=== PATIENT | male | born 1945 | race African-American/Black ===

== ENCOUNTER 2021-09-12 11:45 | Inpatient (IN) | payer MEDICARE, OTHER ==
[~2021-09-12] VITALS: Ht 177.8 cm; Wt 78.0 kg
[2021-09-12 12:41] LABS: BASOPHILS % (AUTO) 0.3 % (0.0-2.0); EOSINOPHILS % (AUTO) 1.3 % (1.0-6.0); HEMATOCRIT 32.1 % (41-53); LYMPHOCYTES # (AUTO) 0.3 K/uL (1.0-4.8); LYMPHOCYTES % (AUTO) 7.6 % (22.0-44.0); MEAN CORPUSCULAR HEMOGLOBIN 29.3 pg (26.0-34.0); MEAN CORPUSCULAR HGB CONC 34.3 G/dL (31.0-37.0); MEAN CORPUSCULAR VOLUME 86 fL (80-100); MONOCYTES # (AUTO) 0.2 K/uL (0.1-1.0); MONOCYTES % (AUTO) 4.1 % (2.0-9.0); NEUTROPHILS # (AUTO) 3.8 K/uL (1.8-7.7); PLATELET COUNT (AUTO) 178 K/uL (150-450); RED BLOOD CELL COUNT(AUTO) 3.75 MIL/uL (4.50-5.90); RED CELL DISTRIBUTION WIDTH 14.8 % (11.5-14.5)
[2021-09-12] MEDS ORDERED: GLUCAGON,HUMAN RECOMBINANT 1 MG VIAL IVP ONE (12:45)
[2021-09-12] MEDS ORDERED: SODIUM CHLORIDE 0.9% 1,000 ML IV ONE (12:45)
[2021-09-12] MEDS ORDERED: ATROPINE SULFATE 0.1 MG/ML 10 ML SYRINGE IVP ONE (12:45)
[2021-09-12] MEDS ORDERED: CALCIUM GLUCONATE 100 MG/ML 10 ML IVP ONE ×3 (12:45→16:45)
[2021-09-12] MEDS ORDERED: ONDANSETRON HCL 4 MG/2 ML VIAL IVP ONE ×2 (12:45→16:45)
[2021-09-12 12:54] LABS: NEUTROPHILS % (AUTO) 86.7 % (40.0-70.0)
[2021-09-12 12:59] LABS: INR 1.1 (0.9-1.1); PROTHROMBIN TIME 12.1 SEC (9.4-11.6)
[2021-09-12 13:02] LABS: B-TYPE NATRIURETIC PEPTIDE 68 pg/mL (0-100)
[2021-09-12 13:05] LABS: LACTIC ACID 0.8 mmol/L (0.4-2.0)
[2021-09-12 13:18] LABS: ALANINE AMINOTRANSFERASE 43 U/L (12-78); ALBUMIN 3.2 g/dL (3.4-5.0); ALKALINE PHOSPHATASE 144 U/L (46-116); ANION GAP 17 mmol/L (8-16); ASPARTATE AMINOTRANSFERASE 49 U/L (15-37); BILIRUBIN,TOTAL 0.4 mg/dL (0.1-1.0); CALCIUM, TOTAL 8.4 mg/dL (8.8-10.5); CARBON DIOXIDE 16 mmol/L (22-29); CHLORIDE 112 mmol/L (98-107); CREATINE KINASE, TOTAL ONLY 351 U/L (39-308); CREATININE 17.75 mg/dL (0.60-1.30); FREE T4 (FREE THYROXINE) 0.89 ng/dL (0.76-1.46); GLUCOSE,RANDOM 156 mg/dL (70-110); LIPASE 575 U/L (73-393); SODIUM SERUM 145 mmol/L (136-145); THYROID STIMULATING HORMONE 2.11 uIU/mL (0.36-3.74); TOTAL PROTEIN, SERUM 6.6 g/dL (6.4-8.2)
[2021-09-12 13:29] LABS: POTASSIUM 6.5 mmol/L (3.5-5.1)
[2021-09-12 13:44] LABS: APPEARANCE,URINE CLEAR (CLEAR); BILIRUBIN,URINE NEGATIVE (NEGATIVE); GLUCOSE, URINE (UA) NEGATIVE (NEGATIVE); KETONES,URINE NEGATIVE (NEGATIVE); LEUKOCYTE ESTERASE ,URINE NEGATIVE (NEGATIVE); NITRATE,URINE NEGATIVE (NEGATIVE); OCCULT BLOOD,URINE TRACE (NEGATIVE); PH,URINE 5.5 (5.0-8.0); PROTEIN,URINE NEGATIVE (NEGATIVE); UROBILINOGEN,URINE 0.2 mg/dL (<=1.0)
[2021-09-12 13:44] LABS: UREA NITROGEN, BLOOD 160 mg/dL (7-18)
[2021-09-12 13:45] LABS: GLOMERULAR FILTR. RATE CALC 3 mL/min (>60)
[2021-09-12] MEDS ORDERED: DEXTROSE 50%-WATER 25 GM/50 ML SYRINGE IVP ONE (13:45)
[2021-09-12] MEDS ORDERED: SODIUM BICARBONATE [ADULT] 8.4% 50 MEQ/50 ML SYRINGE IVP ONE (13:45)
[2021-09-12] MEDS ORDERED: ONDANSETRON HCL 4 MG/2 ML VIAL IVP PRN (13:45)
[2021-09-12] MEDS ORDERED: INSULIN REGULAR, HUMAN 100 UNITS/ML IVP ONE (13:45)
[2021-09-12] MEDS: SODIUM CHLORIDE 0.9% 1,000 ML IV SCH (13:45)
[2021-09-12] MEDS ORDERED: INSULIN LISPRO 100 UNITS/ML SQ PRN (13:45)
[2021-09-12 13:46] LABS: BACTERIA,URINE None Seen /HPF (None Seen); RBC,URINE 0-2 /HPF (0-2); WBC,URINE 0-2 /HPF (0-5)
[2021-09-12 13:49] LABS: AMPHET/METH SCREEN,URINE NEGATIVE (NEGATIVE); BARBITURATE SCREEN, URINE NEGATIVE (NEGATIVE); BENZODIAZEPINES SCREEN,URINE NEGATIVE (NEGATIVE); CANNABINOID SCREEN,URINE NEGATIVE (NEGATIVE); COCAINE SCREEN,URINE NEGATIVE (NEGATIVE); METHADONE SCREEN, URINE NEGATIVE (NEGATIVE); OPIATE SCREEN,URINE NEGATIVE (NEGATIVE); PHENCYCLIDINE SCREEN,URINE NEGATIVE (NEGATIVE)
[2021-09-12] MEDS ORDERED: MIDAZOLAM HCL 2 MG/2 ML VIAL IVP ONE ×3 (14:00→16:15)
[2021-09-12 14:15] LABS: GLUCOMETER DEV NAME(LOC) ERT.5; GLUCOSE,POINT OF CARE 173 MG/DL (70-110)
[2021-09-12 14:44] LABS: COVID AG,FIA SOURCE NASOPHARYNGEAL
[2021-09-12] MEDS ORDERED: MIDAZOLAM HCL 5 MG/ML VIAL ONE (14:51)
[2021-09-12] MEDS ORDERED: HEPARIN SODIUM,PORCINE 5,000 UNITS/ML VIAL ONE (15:22)
[2021-09-12] MEDS: DOCUSATE SODIUM 100 MG CAPSULE PO SCH (21:00)
[2021-09-13] MEDS: LORazepam 2 MG/ML VIAL IVP PRN ×5 (01:43→13:00)
[2021-09-13] MEDS: SODIUM CHLORIDE 0.9% 1,000 ML IV SCH (04:29)
[2021-09-13] MEDS ORDERED: LORazepam 2 MG/ML VIAL IVP ONE (06:45)
[2021-09-13 06:56] LABS: BASOPHILS % (AUTO) 0.3 % (0.0-2.0); EOSINOPHILS % (AUTO) 2.4 % (1.0-6.0); HEMOGLOBIN 13.1 g/dL (13.5-17.5); LYMPHOCYTES # (AUTO) 0.4 K/uL (1.0-4.8); MEAN CORPUSCULAR HEMOGLOBIN 29.1 pg (26.0-34.0); MEAN CORPUSCULAR HGB CONC 34.6 G/dL (31.0-37.0); MEAN CORPUSCULAR VOLUME 84 fL (80-100); MONOCYTES # (AUTO) 0.8 K/uL (0.1-1.0); MONOCYTES % (AUTO) 9.2 % (2.0-9.0); NEUTROPHILS # (AUTO) 7.3 K/uL (1.8-7.7); NEUTROPHILS % (AUTO) 83.1 % (40.0-70.0); PLATELET COUNT (AUTO) 242 K/uL (150-450); RED BLOOD CELL COUNT(AUTO) 4.52 MIL/uL (4.50-5.90); RED CELL DISTRIBUTION WIDTH 14.4 % (11.5-14.5)
[2021-09-13 07:14] LABS: % IRON SATURATION 21.9 % (30-44)
[2021-09-13 07:38] LABS: C-REACTIVE PROTEIN QUANT 6.23 mg/dL (0.00-0.30); CALCIUM, TOTAL 9.3 mg/dL (8.8-10.5); CREATININE 4.11 mg/dL (0.60-1.30); POTASSIUM 4.8 mmol/L (3.5-5.1)
[2021-09-13] MEDS: FAMOTIDINE 20 MG TABLET PO SCH (08:03)
[2021-09-13] MEDS: DOCUSATE SODIUM 100 MG CAPSULE PO SCH ×2 (08:03→21:00)
[2021-09-13] MEDS: HEPARIN SODIUM,PORCINE 5,000 UNITS/ML VIAL SQ SCH ×2 (09:27→22:52)
[2021-09-13] MEDS ORDERED: DEXTROSE 5%-0.45% SODIUM CHL 1,000 ML IV ONE (10:45)
[2021-09-13] MEDS ORDERED: HEPARIN SODIUM,PORCINE 1,000 UNITS/ML VIAL IVP ONE (16:34)
[2021-09-13] MEDS: PIPERACILLIN SODIUM/TAZOBACTAM 2.25 GM in DEXTROSE 5%-WATER 50 ML IV SCH (17:14)
[2021-09-13] MEDS ORDERED: RAPID SEQUENCE KIT [RSI] 1 EACH KIT MISC ONE (17:49)
[2021-09-13] MEDS ORDERED: NOREPINEPHRINE 4 MG/D5%-WATER 250 ML IV ONE (17:49)
[2021-09-13 17:59] LABS: ABG BASE EXCESS -0.3 mmol/L (-2.0-3.0); ABG CARBOXYHEMOGLOBIN 0.2 % (0.0-1.5); ABG HCO3 24.1 mmol/L (22.0-26.0); ABG METHEMOGLOBIN 0.1 % (0.0-1.5); ABG OXYGEN CONTENT 14.5 mL/dL (15.0-23.0); ABG OXYHEMOGLOBIN 78.9 % (94.0-100.0); ABG PCO2 36 mmHg (35-45); ABG PH 7.437 (7.35-7.450); ABG TOTAL HEMOGLOBIN 13.1 G/dL (12.0-18.0); SOURCE, BLOOD GAS ARTERIAL; TEMPERATURE, FAHRENHEIT, BG 98.6 FAHREN (96.0-98.6)
[2021-09-13 18:00] LABS: ABG OXYGEN SATURATION 79.1 % (95.0-98.0); O2 DEVICE,BLOOD GAS NON REBREATHER (ROOM AIR); PO2, ARTERIAL BG 41.8 mmHg (75.0-83.0); SITE, BLOOD GAS LFT RADIAL
[2021-09-13] MEDS ORDERED: DEXTROSE 50%-WATER 25 GM/50 ML SYRINGE IVP ONE (18:00)
[2021-09-13] MEDS ORDERED: PROPOFOL 1000 MG/ISO-OSM 100 ML ONE (18:06)
[2021-09-13] MEDS ORDERED: PHENYLEPHRINE 200 MG/D5%-WATER 250 ML IV PRN (18:30)
[2021-09-13] MEDS ORDERED: PHENYLEPHRINE HCL IN 0.9% NACL 400 MCG/10 ML SYRINGE IVP ONE (18:30)
[2021-09-13 18:39] LABS: HEMATOCRIT 36.6 % (41-53); HEMOGLOBIN 12.5 g/dL (13.5-17.5); MEAN CORPUSCULAR HEMOGLOBIN 29.3 pg (26.0-34.0); MEAN CORPUSCULAR VOLUME 86 fL (80-100); PLATELET COUNT (AUTO) 208 K/uL (150-450); RED BLOOD CELL COUNT(AUTO) 4.25 MIL/uL (4.50-5.90); RED CELL DISTRIBUTION WIDTH 14.8 % (11.5-14.5)
[2021-09-13] MEDS: NOREPINEPHRINE 4 MG/D5%-WATER 250 ML IV PRN (18:40)
[2021-09-13 18:41] LABS: CALCIUM, TOTAL 8.8 mg/dL (8.8-10.5); CREATININE 3.19 mg/dL (0.60-1.30); POTASSIUM 3.8 mmol/L (3.5-5.1)
[2021-09-13] MEDS ORDERED: DEXMEDETOMIDINE HCL 400 MCG in SODIUM CHLORIDE 0.9% 96 ML IV PRN (18:45)
[2021-09-13 18:48] LABS: BILIRUBIN,TOTAL 0.5 mg/dL (0.1-1.0); TOTAL PROTEIN, SERUM 6.4 g/dL (6.4-8.2)
[2021-09-13 18:52] LABS: ABG BASE EXCESS -1.1 mmol/L (-2.0-3.0); ABG CARBOXYHEMOGLOBIN 0.8 % (0.0-1.5); ABG HCO3 22.6 mmol/L (22.0-26.0); ABG METHEMOGLOBIN 0.3 % (0.0-1.5); ABG OXYGEN CONTENT 15.5 mL/dL (15.0-23.0); ABG OXYHEMOGLOBIN 83.1 % (94.0-100.0); ABG PCO2 55 mmHg (35-45); ABG PH 7.286 (7.35-7.450); ABG TOTAL HEMOGLOBIN 13.3 G/dL (12.0-18.0); SOURCE, BLOOD GAS ARTERIAL; TEMPERATURE, FAHRENHEIT, BG 98.8 FAHREN (96.0-98.6)
[2021-09-13 18:54] LABS: O2 DEVICE,BLOOD GAS VENTILATOR (ROOM AIR); PEEP,BG 5 cm H2O; SITE, BLOOD GAS LFT RADIAL; SPONTANEOUS VT, BG 404 ml; VT, ABG 400 ml
[2021-09-13] MEDS: FentaNYL CIT 1000MCG/0.9% NACL 100 ML IV PRN (19:23)
[2021-09-13 19:27] LABS: BAND NEUTROPHILS % (MANUAL) 4 % (0-5); LYMPHOCYTES % (MANUAL) 21 % (22-44); MONOCYTES % (MANUAL) 4 % (2-9); SEGMENTED NEUTROPHILS % 71 % (40-70)
[2021-09-13] MEDS: VASOPRESSIN 40 UNITS in DEXTROSE 5%-WATER 98 ML IV PRN (19:27)
[2021-09-13] MEDS: PROPOFOL 1000 MG/ISO-OSM 100 ML IV PRN (19:54)
[2021-09-13 20:35] LABS: ABG BASE EXCESS -2.4 mmol/L (-2.0-3.0); ABG CARBOXYHEMOGLOBIN 0.8 % (0.0-1.5); ABG HCO3 22.8 mmol/L (22.0-26.0); ABG METHEMOGLOBIN 0.3 % (0.0-1.5); ABG OXYGEN SATURATION 87.3 % (95.0-98.0); ABG OXYHEMOGLOBIN 86.3 % (94.0-100.0); ABG PCO2 36 mmHg (35-45); ABG PH 7.407 (7.35-7.450); PO2, ARTERIAL BG 56.7 mmHg (75.0-83.0); SOURCE, BLOOD GAS ARTERIAL; TEMPERATURE, FAHRENHEIT, BG 100.2 FAHREN (96.0-98.6)
[2021-09-13 20:36] LABS: O2 DEVICE,BLOOD GAS VENTILATOR (ROOM AIR); PEEP,BG 10 cm H2O; SITE, BLOOD GAS LFT RADIAL; SPONTANEOUS VT, BG 464 ml; VT, ABG 450 ml
[2021-09-13] MEDS ORDERED: RINGERS LACTATED IV ONE (21:15)
[2021-09-13] MEDS ORDERED: RINGERS SOLUTION,LACTATED 1,000 ML IV ONE (21:30)
[2021-09-13] MEDS: DOPamine 400MG/D5W[STANDARD] 250 ML IV PRN (21:33)
[2021-09-14] MEDS: PIPERACILLIN SODIUM/TAZOBACTAM 2.25 GM in DEXTROSE 5%-WATER 50 ML IV SCH ×4 (01:18→20:15)
[2021-09-14] MEDS: FentaNYL CIT 1000MCG/0.9% NACL 100 ML IV PRN ×3 (06:43→16:59)
[2021-09-14] MEDS: PROPOFOL 1000 MG/ISO-OSM 100 ML IV PRN (06:57)
[2021-09-14] MEDS: MIDAZOLAM HCL 100 MG in SODIUM CHLORIDE 0.9% 180 ML IV PRN (06:58)
[2021-09-14 07:06] LABS: HEPATITIS C AB (EIA) <0.1 s/co ratio (0.0-0.9)
[2021-09-14 07:49] LABS: ABG BASE EXCESS -5.5 mmol/L (-2.0-3.0); ABG CARBOXYHEMOGLOBIN 0.3 % (0.0-1.5); ABG HCO3 18.4 mmol/L (22.0-26.0); ABG METHEMOGLOBIN 0.3 % (0.0-1.5); ABG OXYGEN CONTENT 17.2 mL/dL (15.0-23.0); ABG OXYGEN SATURATION 87.3 % (95.0-98.0); ABG OXYHEMOGLOBIN 86.8 % (94.0-100.0); ABG TOTAL HEMOGLOBIN 14.1 G/dL (12.0-18.0); PO2, ARTERIAL BG 59.6 mmHg (75.0-83.0); SOURCE, BLOOD GAS ARTERIAL
[2021-09-14 07:51] LABS: ABG A-A DIFF O2 581.5 mmHg (10-20.0); ABG PCO2 76 mmHg (35-45); ABG PH 7.111 (7.35-7.450); O2 DEVICE,BLOOD GAS VENTILATOR (ROOM AIR); SITE, BLOOD GAS LFT RADIAL; TEMPERATURE, FAHRENHEIT, BG 95.3 FAHREN (96.0-98.6); VT, ABG 450 ml
[2021-09-14 07:52] LABS: PEEP,BG 14 cm H2O; SPONTANEOUS VT, BG 350 ml
[2021-09-14] MEDS: FAMOTIDINE 20 MG TABLET PO SCH (08:59)
[2021-09-14] MEDS: DOCUSATE SODIUM 100 MG CAPSULE PO SCH (08:59)
[2021-09-14] MEDS: NOREPINEPHRINE 4 MG/D5%-WATER 250 ML IV PRN ×3 (09:00→23:30)
[2021-09-14] MEDS: DOPamine 400MG/D5W[STANDARD] 250 ML IV PRN ×2 (09:00→16:41)
[2021-09-14] MEDS: HEPARIN SODIUM,PORCINE 5,000 UNITS/ML VIAL SQ SCH ×2 (09:00→22:55)
[2021-09-14 09:36] LABS: HEMATOCRIT 39.9 % (41-53); HEMOGLOBIN 13.2 g/dL (13.5-17.5); MEAN CORPUSCULAR HGB CONC 33.1 G/dL (31.0-37.0); MEAN CORPUSCULAR VOLUME 88 fL (80-100); PLATELET COUNT (AUTO) 194 K/uL (150-450); RED BLOOD CELL COUNT(AUTO) 4.55 MIL/uL (4.50-5.90); RED CELL DISTRIBUTION WIDTH 14.9 % (11.5-14.5)
[2021-09-14 09:43] LABS: ANION GAP 11 mmol/L (8-16); CALCIUM, TOTAL 8.3 mg/dL (8.8-10.5); CARBON DIOXIDE 25 mmol/L (22-29); CHLORIDE 101 mmol/L (98-107); CREATININE 4.02 mg/dL (0.60-1.30); GLOMERULAR FILTR. RATE CALC 18 mL/min (>60); GLUCOSE,RANDOM 222 mg/dL (70-110); SODIUM SERUM 137 mmol/L (136-145); UREA NITROGEN, BLOOD 35 mg/dL (7-18)
[2021-09-14 09:46] LABS: INR 1.2 (0.9-1.1); PROTHROMBIN TIME 12.4 SEC (9.4-11.6)
[2021-09-14 09:49] LABS: ALANINE AMINOTRANSFERASE 64 U/L (12-78); ALKALINE PHOSPHATASE 153 U/L (46-116); ASPARTATE AMINOTRANSFERASE 34 U/L (15-37); BILIRUBIN,TOTAL 0.7 mg/dL (0.1-1.0); TOTAL PROTEIN, SERUM 7.1 g/dL (6.4-8.2)
[2021-09-14 10:07] LABS: ABG A-A DIFF O2 626.2 mmHg (10-20.0); ABG BASE EXCESS -6.1 mmol/L (-2.0-3.0); ABG CARBOXYHEMOGLOBIN 0.4 % (0.0-1.5); ABG HCO3 18.5 mmol/L (22.0-26.0); ABG METHEMOGLOBIN 0.1 % (0.0-1.5); ABG OXYGEN CONTENT 16.9 mL/dL (15.0-23.0); ABG OXYGEN SATURATION 87.1 % (95.0-98.0); ABG OXYHEMOGLOBIN 86.7 % (94.0-100.0); ABG PCO2 53 mmHg (35-45); ABG PH 7.218 (7.35-7.450); ABG TOTAL HEMOGLOBIN 13.9 G/dL (12.0-18.0); O2 DEVICE,BLOOD GAS VENTILATOR (ROOM AIR); PEEP,BG 14 cm H2O; PO2, ARTERIAL BG 44.2 mmHg (75.0-83.0); SITE, BLOOD GAS LFT RADIAL; SOURCE, BLOOD GAS ARTERIAL; SPONTANEOUS VT, BG 500 ml; TEMPERATURE, FAHRENHEIT, BG 90.2 FAHREN (96.0-98.6); VT, ABG 450 ml
[2021-09-14 10:23] LABS: BAND NEUTROPHILS % (MANUAL) 9 % (0-5); LYMPHOCYTES % (MANUAL) 18 % (22-44); MONOCYTES % (MANUAL) 2 % (2-9); SEGMENTED NEUTROPHILS % 71 % (40-70)
[2021-09-14] MEDS ORDERED: SODIUM BICARBONATE [ADULT] 8.4% 50 MEQ/50 ML SYRINGE IVP ONE (10:30)
[2021-09-14] MEDS ORDERED: HEPARIN SODIUM,PORCINE 1,000 UNITS/ML VIAL IVP ONE (14:54)
[2021-09-14] MEDS ORDERED: HEPARIN SODIUM 1000 UNITS/NS 500 ML ONE (15:22)
[2021-09-14 16:00] LABS: ABG CARBOXYHEMOGLOBIN 0.3 % (0.0-1.5); ABG HCO3 23.7 mmol/L (22.0-26.0); ABG OXYGEN CONTENT 16.1 mL/dL (15.0-23.0); ABG OXYGEN SATURATION 89.7 % (95.0-98.0); ABG OXYHEMOGLOBIN 89.4 % (94.0-100.0); ABG PCO2 54 mmHg (35-45); ABG PH 7.307 (7.35-7.450); ABG TOTAL HEMOGLOBIN 12.8 G/dL (12.0-18.0); PO2, ARTERIAL BG 59.9 mmHg (75.0-83.0); SITE, BLOOD GAS ARTERIAL LINE; SOURCE, BLOOD GAS ARTERIAL; TEMPERATURE, FAHRENHEIT, BG 98.6 FAHREN (96.0-98.6)
[2021-09-14 16:01] LABS: ABG A-A DIFF O2 599.2 mmHg (10-20.0); O2 DEVICE,BLOOD GAS VENTILATOR (ROOM AIR); PEEP,BG 12 cm H2O; VT, ABG 450 ml
[2021-09-14 16:14] LABS: CALCIUM, TOTAL 7.6 mg/dL (8.8-10.5); CREATININE 3.61 mg/dL (0.60-1.30); POTASSIUM 4.7 mmol/L (3.5-5.1)
[2021-09-14 16:19] LABS: ALBUMIN 2.6 g/dL (3.4-5.0); BILIRUBIN,TOTAL 0.8 mg/dL (0.1-1.0); MAGNESIUM 1.6 mg/dL (1.80-2.40); PHOSPHORUS 7.1 mg/dL (2.5-4.9); TOTAL PROTEIN, SERUM 6.1 g/dL (6.4-8.2)
[2021-09-14 20:26] LABS: HEMOGLOBIN 11.7 g/dL (13.5-17.5); MEAN CORPUSCULAR HEMOGLOBIN 29.9 pg (26.0-34.0); MEAN CORPUSCULAR HGB CONC 34.5 G/dL (31.0-37.0); MEAN CORPUSCULAR VOLUME 87 fL (80-100); PLATELET COUNT (AUTO) 160 K/uL (150-450); RED BLOOD CELL COUNT(AUTO) 3.92 MIL/uL (4.50-5.90); RED CELL DISTRIBUTION WIDTH 14.9 % (11.5-14.5)
[2021-09-14 20:43] LABS: MAGNESIUM 1.5 mg/dL (1.80-2.40); PHOSPHORUS 7.3 mg/dL (2.5-4.9)
[2021-09-14] MEDS ORDERED: SODIUM CHLORIDE 0.9% 1,000 ML ONE ×2 (21:21→21:22)
[2021-09-14] MEDS ORDERED: POTASSIUM CHLORIDE 15 MEQ in NXSTAGE RFP-402 K0/CA3 5,000 ML IRRIG PRN (21:30)
[2021-09-14 22:20] LABS: CALCIUM, TOTAL 7.6 mg/dL (8.8-10.5); CREATININE 4.07 mg/dL (0.60-1.30)
[2021-09-14 22:42] LABS: BAND NEUTROPHILS % (MANUAL) 11 % (0-5); LYMPHOCYTES % (MANUAL) 10 % (22-44); MONOCYTES % (MANUAL) 11 % (2-9); SEGMENTED NEUTROPHILS % 68 % (40-70)
[2021-09-15] VITALS: BP 125/40
[2021-09-15] MEDS: FentaNYL CIT 1000MCG/0.9% NACL 100 ML IV PRN ×3 (00:57→20:30)
[2021-09-15 02:01] LABS: HEMATOCRIT 31.9 % (41-53); HEMOGLOBIN 11.1 g/dL (13.5-17.5); MEAN CORPUSCULAR HEMOGLOBIN 29.5 pg (26.0-34.0); MEAN CORPUSCULAR HGB CONC 34.7 G/dL (31.0-37.0); MEAN CORPUSCULAR VOLUME 85 fL (80-100); PLATELET COUNT (AUTO) 133 K/uL (150-450); RED BLOOD CELL COUNT(AUTO) 3.75 MIL/uL (4.50-5.90); RED CELL DISTRIBUTION WIDTH 14.4 % (11.5-14.5)
[2021-09-15 02:13] LABS: CALCIUM, TOTAL 7.6 mg/dL (8.8-10.5); CREATININE 3.74 mg/dL (0.60-1.30); MAGNESIUM 1.6 mg/dL (1.80-2.40); PHOSPHORUS 6.4 mg/dL (2.5-4.9); POTASSIUM 4.9 mmol/L (3.5-5.1)
[2021-09-15 02:23] LABS: CORRECTED WHITE BLOOD COUNT 7.7 K/uL (4.5-11.0)
[2021-09-15 02:30] LABS: SEGMENTED NEUTROPHILS % 60 % (40-70)
[2021-09-15 02:31] LABS: BAND NEUTROPHILS % (MANUAL) 20 % (0-5); LYMPHOCYTES % (MANUAL) 9 % (22-44); MONOCYTES % (MANUAL) 11 % (2-9)
[2021-09-15] MEDS: PIPERACILLIN SODIUM/TAZOBACTAM 2.25 GM in DEXTROSE 5%-WATER 50 ML IV SCH (02:34)
[2021-09-15] MEDS ORDERED: SODIUM CHLORIDE 0.9% 250 ML IV ONE (02:35)
[2021-09-15 04:00] VITALS: BP 115/43
[2021-09-15] MEDS ORDERED: MAGNESIUM SULFATE 2 GM/WATER 50 ML IV ONE (05:30)
[2021-09-15] MEDS: NOREPINEPHRINE 4 MG/D5%-WATER 250 ML IV PRN ×3 (06:02→21:32)
[2021-09-15 06:10] LABS: HEMATOCRIT 31.6 % (41-53); HEMOGLOBIN 10.9 g/dL (13.5-17.5); MEAN CORPUSCULAR HEMOGLOBIN 29.6 pg (26.0-34.0); MEAN CORPUSCULAR HGB CONC 34.5 G/dL (31.0-37.0); MEAN CORPUSCULAR VOLUME 86 fL (80-100); PLATELET COUNT (AUTO) 132 K/uL (150-450); RED BLOOD CELL COUNT(AUTO) 3.69 MIL/uL (4.50-5.90); RED CELL DISTRIBUTION WIDTH 14.6 % (11.5-14.5)
[2021-09-15 06:34] LABS: CALCIUM, TOTAL 7.4 mg/dL (8.8-10.5); CREATININE 3.57 mg/dL (0.60-1.30); MAGNESIUM 1.5 mg/dL (1.80-2.40); PHOSPHORUS 6.1 mg/dL (2.5-4.9); POTASSIUM 4.7 mmol/L (3.5-5.1)
[2021-09-15] MEDS ORDERED: HEPARIN SODIUM,PORCINE 100 UNITS/ML 5 ML VIAL IVP ONE ×4 (07:00→07:30)
[2021-09-15 07:07] LABS: BAND NEUTROPHILS % (MANUAL) 33 % (0-5); LYMPHOCYTES % (MANUAL) 8 % (22-44); MONOCYTES % (MANUAL) 2 % (2-9); SEGMENTED NEUTROPHILS % 57 % (40-70)
[2021-09-15] MEDS ORDERED: HEPARIN SODIUM,PORCINE 1,000 UNITS/ML VIAL ONE (07:22)
[2021-09-15] MEDS: HEPARIN SODIUM,PORCINE 1,000 UNITS/ML VIAL IVP PRN ×3 (07:30→13:19)
[2021-09-15] MEDS ORDERED: HEPARIN SODIUM,PORCINE 1,000 UNITS/ML VIAL IVP PRN (07:30)
[2021-09-15 08:00] VITALS: BP 109/42
[2021-09-15] MEDS: MIDAZOLAM HCL 100 MG in SODIUM CHLORIDE 0.9% 180 ML IV PRN (08:00)
[2021-09-15] MEDS: DOCUSATE SODIUM 100 MG CAPSULE PO SCH ×2 (09:00→21:00)
[2021-09-15] MEDS: PIPERACILLIN/TAZO 3.375 GM/D5W 50 ML IV SCH ×3 (09:17→21:14)
[2021-09-15] MEDS: HEPARIN SODIUM,PORCINE 5,000 UNITS/ML VIAL SQ SCH ×2 (09:35→21:14)
[2021-09-15] MEDS ORDERED: FAMOTIDINE 20 MG TABLET ONE (09:37)
[2021-09-15 11:00] LABS: HEMOGLOBIN 10.6 g/dL (13.5-17.5); MEAN CORPUSCULAR HEMOGLOBIN 29.4 pg (26.0-34.0); MEAN CORPUSCULAR VOLUME 86 fL (80-100); PLATELET COUNT (AUTO) 138 K/uL (150-450); RED BLOOD CELL COUNT(AUTO) 3.59 MIL/uL (4.50-5.90); RED CELL DISTRIBUTION WIDTH 14.4 % (11.5-14.5)
[2021-09-15 11:27] LABS: CALCIUM, TOTAL 7.5 mg/dL (8.8-10.5); CREATININE 4.08 mg/dL (0.60-1.30); MAGNESIUM 2.3 mg/dL (1.80-2.40); PHOSPHORUS 6.6 mg/dL (2.5-4.9); POTASSIUM 4.9 mmol/L (3.5-5.1)
[2021-09-15 11:36] LABS: BAND NEUTROPHILS % (MANUAL) 24 % (0-5); CORRECTED WHITE BLOOD COUNT 11.5 K/uL (4.5-11.0); EOSINOPHILS % (MANUAL) 3 % (1-6); LYMPHOCYTES % (MANUAL) 9 % (22-44); MONOCYTES % (MANUAL) 6 % (2-9); REACTIVE LYMPHOCYTES 1 % (0-0); SEGMENTED NEUTROPHILS % 57 % (40-70)
[2021-09-15] MEDS: DOPamine 400MG/D5W[STANDARD] 250 ML IV PRN (11:48)
[2021-09-15 12:00] VITALS: BP 117/46
[2021-09-15 15:31] LABS: HEMATOCRIT 28.6 % (41-53); HEMOGLOBIN 9.8 g/dL (13.5-17.5); MEAN CORPUSCULAR HEMOGLOBIN 29.6 pg (26.0-34.0); MEAN CORPUSCULAR HGB CONC 34.1 G/dL (31.0-37.0); MEAN CORPUSCULAR VOLUME 87 fL (80-100); PLATELET COUNT (AUTO) 138 K/uL (150-450); RED CELL DISTRIBUTION WIDTH 14.6 % (11.5-14.5)
[2021-09-15 15:42] LABS: CALCIUM, TOTAL 7.5 mg/dL (8.8-10.5); CREATININE 3.77 mg/dL (0.60-1.30); MAGNESIUM 2.3 mg/dL (1.80-2.40); PHOSPHORUS 6.3 mg/dL (2.5-4.9); POTASSIUM 4.8 mmol/L (3.5-5.1)
[2021-09-15 16:00] VITALS: BP 127/48
[2021-09-15 16:00] LABS: BAND NEUTROPHILS % (MANUAL) 19 % (0-5); LYMPHOCYTES % (MANUAL) 5 % (22-44); METAMYELOCYTES % 1 % (0-0); MONOCYTES % (MANUAL) 4 % (2-9); SEGMENTED NEUTROPHILS % 71 % (40-70)
[2021-09-15] MEDS ORDERED: SODIUM CHLORIDE 0.9% 1,000 ML ONE ×2 (16:49→22:21)
[2021-09-15 19:24] LABS: HEMATOCRIT 27.1 % (41-53); HEMOGLOBIN 9.6 g/dL (13.5-17.5); MEAN CORPUSCULAR HGB CONC 35.3 G/dL (31.0-37.0); MEAN CORPUSCULAR VOLUME 85 fL (80-100); PLATELET COUNT (AUTO) 137 K/uL (150-450); RED CELL DISTRIBUTION WIDTH 14.6 % (11.5-14.5)
[2021-09-15 19:36] LABS: CALCIUM, TOTAL 7.4 mg/dL (8.8-10.5); CREATININE 3.61 mg/dL (0.60-1.30); PHOSPHORUS 5.9 mg/dL (2.5-4.9); POTASSIUM 4.6 mmol/L (3.5-5.1)
[2021-09-15 19:44] LABS: BAND NEUTROPHILS % (MANUAL) 17 % (0-5); CORRECTED WHITE BLOOD COUNT 9.2 K/uL (4.5-11.0); LYMPHOCYTES % (MANUAL) 12 % (22-44); MONOCYTES % (MANUAL) 2 % (2-9); REACTIVE LYMPHOCYTES 2 % (0-0); SEGMENTED NEUTROPHILS % 67 % (40-70)
[2021-09-15] MEDS: VASOPRESSIN 40 UNITS in DEXTROSE 5%-WATER 98 ML IV PRN (23:46)
[2021-09-15 23:48] LABS: HEMATOCRIT 27.1 % (41-53); HEMOGLOBIN 9.2 g/dL (13.5-17.5); MEAN CORPUSCULAR HEMOGLOBIN 29.4 pg (26.0-34.0); MEAN CORPUSCULAR VOLUME 86 fL (80-100); PLATELET COUNT (AUTO) 130 K/uL (150-450); RED BLOOD CELL COUNT(AUTO) 3.14 MIL/uL (4.50-5.90); RED CELL DISTRIBUTION WIDTH 14.3 % (11.5-14.5)
[2021-09-15 23:53] VITALS: BP 113/42
[2021-09-16] VITALS: BP 135/45
[2021-09-16 00:15] LABS: CALCIUM, TOTAL 7.4 mg/dL (8.8-10.5); CREATININE 3.48 mg/dL (0.60-1.30); MAGNESIUM 2.2 mg/dL (1.80-2.40); PHOSPHORUS 5.9 mg/dL (2.5-4.9); POTASSIUM 4.5 mmol/L (3.5-5.1)
[2021-09-16] MEDS: MIDAZOLAM HCL 100 MG in SODIUM CHLORIDE 0.9% 180 ML IV PRN ×3 (00:36→22:35)
[2021-09-16 01:02] LABS: BAND NEUTROPHILS % (MANUAL) 12 % (0-5); LYMPHOCYTES % (MANUAL) 6 % (22-44); MONOCYTES % (MANUAL) 11 % (2-9); SEGMENTED NEUTROPHILS % 71 % (40-70)
[2021-09-16] MEDS: NOREPINEPHRINE 4 MG/D5%-WATER 250 ML IV PRN ×2 (01:49→07:28)
[2021-09-16] MEDS: FentaNYL CIT 1000MCG/0.9% NACL 100 ML IV PRN ×5 (02:49→22:35)
[2021-09-16] MEDS: DOPamine 400MG/D5W[STANDARD] 250 ML IV PRN (02:51)
[2021-09-16] MEDS: PIPERACILLIN/TAZO 3.375 GM/D5W 50 ML IV SCH ×4 (03:27→20:40)
[2021-09-16 04:00] VITALS: BP 133/43
[2021-09-16] MEDS ORDERED: SODIUM CHLORIDE 0.9% 1,000 ML ONE (04:54)
[2021-09-16] MEDS ORDERED: SODIUM CHLORIDE 0.9% 250 ML IV ONE ×2 (04:54→22:24)
[2021-09-16 05:17] LABS: CALCIUM, TOTAL 7.8 mg/dL (8.8-10.5); CREATININE 3.25 mg/dL (0.60-1.30); MAGNESIUM 2.3 mg/dL (1.80-2.40); PHOSPHORUS 5.6 mg/dL (2.5-4.9); POTASSIUM 4.3 mmol/L (3.5-5.1)
[2021-09-16 08:00] VITALS: BP 140/46
[2021-09-16] MEDS: DOCUSATE SODIUM 100 MG CAPSULE PO SCH ×2 (08:14→20:40)
[2021-09-16] MEDS: FAMOTIDINE 20 MG TABLET NG SCH (08:19)
[2021-09-16] MEDS: ETHYL ALCOHOL 62% ANTISEPTIC NASAL INHALANT 0.6 ML AMPUL NASAL SCH ×2 (08:19→20:40)
[2021-09-16] MEDS: HEPARIN SODIUM,PORCINE 5,000 UNITS/ML VIAL SQ SCH ×2 (08:20→20:40)
[2021-09-16] MEDS: NOREPINEPHRINE BITARTRATE 16 MG in DEXTROSE 5%-WATER 234 ML IV PRN (09:07)
[2021-09-16 10:27] LABS: ABG BASE EXCESS -3.8 mmol/L (-2.0-3.0); ABG CARBOXYHEMOGLOBIN 0.1 % (0.0-1.5); ABG HCO3 21.5 mmol/L (22.0-26.0); ABG METHEMOGLOBIN 0.3 % (0.0-1.5); ABG OXYGEN SATURATION 99.3 % (95.0-98.0); ABG OXYHEMOGLOBIN 98.9 % (94.0-100.0); ABG PCO2 41 mmHg (35-45); ABG PH 7.346 (7.35-7.450); ABG TOTAL HEMOGLOBIN 9.6 G/dL (12.0-18.0); SOURCE, BLOOD GAS ARTERIAL; TEMPERATURE, FAHRENHEIT, BG 96.8 FAHREN (96.0-98.6)
[2021-09-16 10:28] LABS: O2 DEVICE,BLOOD GAS VENTILATOR (ROOM AIR); SITE, BLOOD GAS ALINE; VT, ABG 450 ml
[2021-09-16 10:29] LABS: PEEP,BG 12 cm H2O; SPONTANEOUS VT, BG 441 ml
[2021-09-16 12:01] VITALS: BP 135/41
[2021-09-16 13:12] LABS: ABG BASE EXCESS -3.3 mmol/L (-2.0-3.0); ABG CARBOXYHEMOGLOBIN 0.1 % (0.0-1.5); ABG METHEMOGLOBIN 0.3 % (0.0-1.5); ABG OXYGEN CONTENT 13.6 mL/dL (15.0-23.0); ABG OXYGEN SATURATION 98.9 % (95.0-98.0); ABG OXYHEMOGLOBIN 98.5 % (94.0-100.0); ABG PCO2 39 mmHg (35-45); ABG PH 7.372 (7.35-7.450); ABG TOTAL HEMOGLOBIN 9.6 G/dL (12.0-18.0); SOURCE, BLOOD GAS ARTERIAL; TEMPERATURE, FAHRENHEIT, BG 98.4 FAHREN (96.0-98.6)
[2021-09-16 13:13] LABS: O2 DEVICE,BLOOD GAS VENTILATOR (ROOM AIR); PEEP,BG 12 cm H2O; SITE, BLOOD GAS ALINE; VENT MODE, BG 450 (ROOM AIR); VT, ABG 444 ml
[2021-09-16] MEDS: POTASSIUM CHLORIDE 20 MEQ in NXSTAGE RFP-402 K0/CA3 5,000 ML IRRIG PRN ×3 (14:37→23:51)
[2021-09-16 16:00] VITALS: BP 164/46
[2021-09-16] MEDS: VASOPRESSIN 40 UNITS in DEXTROSE 5%-WATER 98 ML IV PRN (16:23)
[2021-09-16 17:46] LABS: GLUCOSE,POINT OF CARE 82 MG/DL (70-110)
[2021-09-16 20:00] VITALS: BP 142/39
[2021-09-17] VITALS: BP 149/41
[2021-09-17] MEDS: PIPERACILLIN/TAZO 3.375 GM/D5W 50 ML IV SCH ×4 (01:16→20:58)
[2021-09-17] MEDS ORDERED: SODIUM CHLORIDE 0.9% 500 ML IV ONE (02:53)
[2021-09-17 04:00] VITALS: BP 134/45
[2021-09-17] MEDS: DEXTROSE 50%-WATER 25 GM/50 ML SYRINGE IVP PRN ×2 (05:07→23:50)
[2021-09-17] MEDS: NOREPINEPHRINE BITARTRATE 16 MG in DEXTROSE 5%-WATER 234 ML IV PRN (05:08)
[2021-09-17 05:31] LABS: GLUCOSE,POINT OF CARE 65 MG/DL (70-110)
[2021-09-17 05:31] LABS: GLUCOSE,POINT OF CARE 81 MG/DL (70-110)
[2021-09-17 05:31] LABS: GLUCOSE,POINT OF CARE 74 MG/DL (70-110)
[2021-09-17 06:05] LABS: CREATININE 1.94 mg/dL (0.60-1.30); PHOSPHORUS 3.8 mg/dL (2.5-4.9); POTASSIUM 3.9 mmol/L (3.5-5.1)
[2021-09-17] MEDS: FentaNYL CIT 1000MCG/0.9% NACL 100 ML IV PRN ×2 (06:48→16:40)
[2021-09-17 08:00] VITALS: BP 138/43
[2021-09-17] MEDS: FAMOTIDINE 20 MG TABLET NG SCH (09:17)
[2021-09-17] MEDS: DOCUSATE SODIUM 100 MG CAPSULE PO SCH ×2 (09:18→20:58)
[2021-09-17] MEDS: HEPARIN SODIUM,PORCINE 5,000 UNITS/ML VIAL SQ SCH ×2 (09:19→21:08)
[2021-09-17] MEDS: ETHYL ALCOHOL 62% ANTISEPTIC NASAL INHALANT 0.6 ML AMPUL NASAL SCH ×2 (10:44→21:08)
[2021-09-17 11:56] LABS: GLUCOSE,POINT OF CARE 146 MG/DL (70-110)
[2021-09-17 12:00] VITALS: BP 114/39
[2021-09-17] MEDS: POTASSIUM CHLORIDE 20 MEQ in NXSTAGE RFP-402 K0/CA3 5,000 ML IRRIG PRN ×3 (12:00→18:05)
[2021-09-17] MEDS: MIDAZOLAM HCL 100 MG in SODIUM CHLORIDE 0.9% 180 ML IV PRN (14:23)
[2021-09-17 14:33] LABS: ABG BASE EXCESS 0.4 mmol/L (-2.0-3.0); ABG CARBOXYHEMOGLOBIN 0.2 % (0.0-1.5); ABG METHEMOGLOBIN 0.3 % (0.0-1.5); ABG OXYGEN CONTENT 13.5 mL/dL (15.0-23.0); ABG OXYHEMOGLOBIN 98.5 % (94.0-100.0); ABG PCO2 37 mmHg (35-45); ABG PH 7.443 (7.35-7.450); ABG TOTAL HEMOGLOBIN 9.5 G/dL (12.0-18.0); PO2, ARTERIAL BG 142.3 mmHg (75.0-83.0); SOURCE, BLOOD GAS ARTERIAL; TEMPERATURE, FAHRENHEIT, BG 98.6 FAHREN (96.0-98.6)
[2021-09-17 14:34] LABS: SITE, BLOOD GAS ARTERIAL LINE
[2021-09-17 14:35] LABS: ABG A-A DIFF O2 172.9 mmHg (10-20.0); O2 DEVICE,BLOOD GAS VENTILATOR (ROOM AIR); PEEP,BG 8 cm H2O; VENT MODE, BG A (ROOM AIR); VT, ABG 450 ml
[2021-09-17 16:00] VITALS: BP 125/42
[2021-09-17 17:41] LABS: GLUCOSE,POINT OF CARE 80 MG/DL (70-110)
[2021-09-17 20:00] VITALS: BP 131/40
[2021-09-17 22:36] LABS: GLUCOSE,POINT OF CARE 72 MG/DL (70-110)
[2021-09-18] VITALS: BP 144/42
[2021-09-18] MEDS: FentaNYL CIT 1000MCG/0.9% NACL 100 ML IV PRN ×3 (01:20→20:39)
[2021-09-18] MEDS: PIPERACILLIN/TAZO 3.375 GM/D5W 50 ML IV SCH ×4 (02:08→20:37)
[2021-09-18 04:00] VITALS: BP 143/43
[2021-09-18] MEDS: POTASSIUM CHLORIDE 20 MEQ in NXSTAGE RFP-402 K0/CA3 5,000 ML IRRIG PRN ×2 (04:22→04:23)
[2021-09-18 05:58] LABS: CALCIUM, TOTAL 8.5 mg/dL (8.8-10.5); CREATININE 1.39 mg/dL (0.60-1.30); PHOSPHORUS 2.5 mg/dL (2.5-4.9); POTASSIUM 3.5 mmol/L (3.5-5.1)
[2021-09-18] MEDS: MIDAZOLAM HCL 100 MG in SODIUM CHLORIDE 0.9% 180 ML IV PRN (06:47)
[2021-09-18 07:41] LABS: GLUCOSE,POINT OF CARE 136 MG/DL (70-110)
[2021-09-18 07:41] LABS: GLUCOSE,POINT OF CARE 63 MG/DL (70-110)
[2021-09-18 07:41] LABS: GLUCOSE,POINT OF CARE 87 MG/DL (70-110)
[2021-09-18] MEDS: ETHYL ALCOHOL 62% ANTISEPTIC NASAL INHALANT 0.6 ML AMPUL NASAL SCH ×2 (07:52→20:36)
[2021-09-18] MEDS ORDERED: SODIUM CHLORIDE 0.9% 250 ML IV ONE (07:54)
[2021-09-18 08:00] VITALS: BP 132/41
[2021-09-18] MEDS: FAMOTIDINE 20 MG TABLET NG SCH (08:58)
[2021-09-18] MEDS: DOCUSATE SODIUM 100 MG CAPSULE PO SCH ×3 (08:58→21:00)
[2021-09-18] MEDS: HEPARIN SODIUM,PORCINE 5,000 UNITS/ML VIAL SQ SCH ×2 (08:58→20:36)
[2021-09-18] MEDS: HEPARIN SODIUM,PORCINE 1,000 UNITS/ML VIAL IVP PRN (11:40)
[2021-09-18 12:00] VITALS: BP 164/54
[2021-09-18 16:00] VITALS: BP 123/38
[2021-09-18 17:31] LABS: GLUCOSE,POINT OF CARE 84 MG/DL (70-110)
[2021-09-18] MEDS: DEXMEDETOMIDINE HCL 400 MCG in SODIUM CHLORIDE 0.9% 96 ML IV PRN (17:31)
[2021-09-18 20:00] VITALS: BP 114/34
[2021-09-19] VITALS: BP 109/34
[2021-09-19] MEDS: MIDAZOLAM HCL 100 MG in SODIUM CHLORIDE 0.9% 180 ML IV PRN (00:52)
[2021-09-19] MEDS: PIPERACILLIN/TAZO 3.375 GM/D5W 50 ML IV SCH ×2 (01:48→08:10)
[2021-09-19] MEDS ORDERED: SODIUM CHLORIDE 0.9% 250 ML IV ONE (03:27)
[2021-09-19 04:00] VITALS: BP 133/42
[2021-09-19] MEDS: DEXMEDETOMIDINE HCL 400 MCG in SODIUM CHLORIDE 0.9% 96 ML IV PRN ×2 (04:34→23:16)
[2021-09-19 06:13] LABS: CALCIUM, TOTAL 8.4 mg/dL (8.8-10.5); CREATININE 1.87 mg/dL (0.60-1.30); PHOSPHORUS 2.8 mg/dL (2.5-4.9)
[2021-09-19 07:11] LABS: GLUCOSE,POINT OF CARE 99 MG/DL (70-110)
[2021-09-19 07:11] LABS: GLUCOSE,POINT OF CARE 80 MG/DL (70-110)
[2021-09-19 07:11] LABS: GLUCOSE,POINT OF CARE 96 MG/DL (70-110)
[2021-09-19] MEDS: POTASSIUM CHLORIDE 10% 40 MEQ/30 ML LIQUID UDCUP PO ONE ×2 (07:12→08:10)
[2021-09-19] MEDS: FentaNYL CIT 1000MCG/0.9% NACL 100 ML IV PRN ×2 (07:35→15:17)
[2021-09-19 08:00] VITALS: BP 106/35
[2021-09-19] MEDS: ETHYL ALCOHOL 62% ANTISEPTIC NASAL INHALANT 0.6 ML AMPUL NASAL SCH ×2 (08:10→20:44)
[2021-09-19] MEDS: HEPARIN SODIUM,PORCINE 5,000 UNITS/ML VIAL SQ SCH ×2 (08:10→20:44)
[2021-09-19] MEDS: FAMOTIDINE 20 MG TABLET NG SCH (08:11)
[2021-09-19] MEDS: DOCUSATE SODIUM 100 MG CAPSULE PO SCH ×2 (08:48→20:37)
[2021-09-19] MEDS ORDERED: POTASSIUM CHL 10 MEQ/WATER 50 ML IV ONE (09:45)
[2021-09-19 12:00] VITALS: BP 114/36
[2021-09-19] MEDS: PIPERACILLIN SODIUM/TAZOBACTAM 2.25 GM in DEXTROSE 5%-WATER 50 ML IV SCH ×2 (14:16→20:23)
[2021-09-19 15:42] LABS: BASOPHILS % (AUTO) 0.3 % (0.0-2.0); EOSINOPHILS % (AUTO) 4.1 % (1.0-6.0); HEMATOCRIT 24.8 % (41-53); HEMOGLOBIN 8.3 g/dL (13.5-17.5); LYMPHOCYTES # (AUTO) 0.7 K/uL (1.0-4.8); LYMPHOCYTES % (AUTO) 10.8 % (22.0-44.0); MEAN CORPUSCULAR HEMOGLOBIN 29.6 pg (26.0-34.0); MEAN CORPUSCULAR HGB CONC 33.7 G/dL (31.0-37.0); MEAN CORPUSCULAR VOLUME 88 fL (80-100); MONOCYTES # (AUTO) 1.2 K/uL (0.1-1.0); MONOCYTES % (AUTO) 18.5 % (2.0-9.0); NEUTROPHILS # (AUTO) 4.2 K/uL (1.8-7.7); NEUTROPHILS % (AUTO) 66.3 % (40.0-70.0); PLATELET COUNT (AUTO) 128 K/uL (150-450); RED BLOOD CELL COUNT(AUTO) 2.82 MIL/uL (4.50-5.90); RED CELL DISTRIBUTION WIDTH 14.1 % (11.5-14.5)
[2021-09-19 16:00] VITALS: BP 112/48
[2021-09-19 16:57] LABS: ABG BASE EXCESS 2.2 mmol/L (-2.0-3.0); ABG CARBOXYHEMOGLOBIN 0.7 % (0.0-1.5); ABG HCO3 26.6 mmol/L (22.0-26.0); ABG METHEMOGLOBIN 0.3 % (0.0-1.5); ABG OXYGEN CONTENT 11.8 mL/dL (15.0-23.0); ABG OXYGEN SATURATION 98.6 % (95.0-98.0); ABG OXYHEMOGLOBIN 97.6 % (94.0-100.0); ABG PCO2 32 mmHg (35-45); ABG TOTAL HEMOGLOBIN 8.4 G/dL (12.0-18.0); PO2, ARTERIAL BG 117.9 mmHg (75.0-83.0); SOURCE, BLOOD GAS ARTERIAL; TEMPERATURE, FAHRENHEIT, BG 98.9 FAHREN (96.0-98.6)
[2021-09-19 16:58] LABS: O2 DEVICE,BLOOD GAS VENTILATOR (ROOM AIR); PEEP,BG 5 cm H2O; SITE, BLOOD GAS ARTERIAL LINE; VT, ABG 450 ml
[2021-09-19 18:46] LABS: CALCIUM, TOTAL 8.5 mg/dL (8.8-10.5); CREATININE 1.8 mg/dL (0.60-1.30); POTASSIUM 3.3 mmol/L (3.5-5.1)
[2021-09-19 20:00] VITALS: BP 128/41
[2021-09-19] MEDS: POTASSIUM CHL 10 MEQ/WATER 50 ML IV SCH ×2 (20:45→21:51)
[2021-09-19 21:47] LABS: OCCULT BLOOD STOOL SINGLE ONLY NEGATIVE (NEGATIVE)
[2021-09-19 22:02] LABS: C.DIFF GDH ANTIGEN, Stool Positive (Negative); C.DIFF TOXINS A&B, Stool Negative (Negative)
[2021-09-19] MEDS ORDERED: MetroNIDAZOLE 500 MG/NACL 100 ML IV SCH (22:15)
[2021-09-20] VITALS: BP 158/54
[2021-09-20] MEDS: FentaNYL CIT 1000MCG/0.9% NACL 100 ML IV PRN ×3 (02:05→17:53)
[2021-09-20] MEDS: LORazepam 2 MG/ML VIAL IVP PRN ×6 (02:08→23:23)
[2021-09-20] MEDS: PIPERACILLIN SODIUM/TAZOBACTAM 2.25 GM in DEXTROSE 5%-WATER 50 ML IV SCH ×4 (02:08→19:55)
[2021-09-20] MEDS: MetroNIDAZOLE 500 MG TABLET PO SCH ×4 (02:29→23:23)
[2021-09-20] MEDS ORDERED: SODIUM CHLORIDE 0.9% 250 ML IV ONE (03:42)
[2021-09-20] MEDS ORDERED: SODIUM CHLORIDE 0.9% 500 ML IV ONE (03:48)
[2021-09-20 04:00] VITALS: BP 176/51
[2021-09-20 06:03] LABS: BASOPHILS % (AUTO) 0.5 % (0.0-2.0); EOSINOPHILS % (AUTO) 3.7 % (1.0-6.0); HEMATOCRIT 23.5 % (41-53); HEMOGLOBIN 8.1 g/dL (13.5-17.5); LYMPHOCYTES # (AUTO) 0.6 K/uL (1.0-4.8); LYMPHOCYTES % (AUTO) 10.5 % (22.0-44.0); MEAN CORPUSCULAR HEMOGLOBIN 29.8 pg (26.0-34.0); MEAN CORPUSCULAR HGB CONC 34.3 G/dL (31.0-37.0); MEAN CORPUSCULAR VOLUME 87 fL (80-100); MONOCYTES # (AUTO) 0.9 K/uL (0.1-1.0); MONOCYTES % (AUTO) 15.1 % (2.0-9.0); NEUTROPHILS # (AUTO) 4.4 K/uL (1.8-7.7); NEUTROPHILS % (AUTO) 70.2 % (40.0-70.0); PLATELET COUNT (AUTO) 141 K/uL (150-450)
[2021-09-20 08:00] VITALS: BP 119/36
[2021-09-20] MEDS: DEXMEDETOMIDINE HCL 400 MCG in SODIUM CHLORIDE 0.9% 96 ML IV PRN ×2 (08:11→19:58)
[2021-09-20 08:27] LABS: ABG BASE EXCESS -0.9 mmol/L (-2.0-3.0); ABG CARBOXYHEMOGLOBIN 0.6 % (0.0-1.5); ABG METHEMOGLOBIN 0.3 % (0.0-1.5); ABG OXYGEN SATURATION 97.4 % (95.0-98.0); ABG OXYHEMOGLOBIN 96.5 % (94.0-100.0); ABG PCO2 32 mmHg (35-45); ABG PH 7.471 (7.35-7.450); PO2, ARTERIAL BG 103.5 mmHg (75.0-83.0); SOURCE, BLOOD GAS ARTERIAL; TEMPERATURE, FAHRENHEIT, BG 99.7 FAHREN (96.0-98.6)
[2021-09-20 08:28] LABS: O2 DEVICE,BLOOD GAS VENTILATOR (ROOM AIR); SITE, BLOOD GAS ARTERIAL LINE
[2021-09-20 08:29] LABS: PEEP,BG 5 cm H2O; SPONTANEOUS VT, BG 408 ml; VT, ABG 450 ml
[2021-09-20] MEDS: HEPARIN SODIUM,PORCINE 5,000 UNITS/ML VIAL SQ SCH ×2 (08:46→20:05)
[2021-09-20] MEDS: ETHYL ALCOHOL 62% ANTISEPTIC NASAL INHALANT 0.6 ML AMPUL NASAL SCH ×2 (08:46→19:58)
[2021-09-20 08:47] LABS: GLUCOSE,POINT OF CARE 112 MG/DL (70-110)
[2021-09-20 08:47] LABS: GLUCOSE,POINT OF CARE 114 MG/DL (70-110)
[2021-09-20 08:47] LABS: GLUCOSE,POINT OF CARE 93 MG/DL (70-110)
[2021-09-20] MEDS: FAMOTIDINE 20 MG TABLET NG SCH (08:47)
[2021-09-20] MEDS: DOCUSATE SODIUM 100 MG CAPSULE PO SCH ×2 (09:00→20:02)
[2021-09-20 10:40] LABS: CALCIUM, TOTAL 8.4 mg/dL (8.8-10.5); CREATININE 1.58 mg/dL (0.60-1.30); POTASSIUM 3.4 mmol/L (3.5-5.1)
[2021-09-20 10:44] LABS: PHOSPHORUS 3.6 mg/dL (2.5-4.9)
[2021-09-20 12:00] VITALS: BP 111/51
[2021-09-20 13:08] LABS: ABG CARBOXYHEMOGLOBIN 0.5 % (0.0-1.5); ABG HCO3 25.4 mmol/L (22.0-26.0); ABG METHEMOGLOBIN 0.3 % (0.0-1.5); ABG OXYGEN CONTENT 10.9 mL/dL (15.0-23.0); ABG OXYGEN SATURATION 98.1 % (95.0-98.0); ABG OXYHEMOGLOBIN 97.3 % (94.0-100.0); ABG PCO2 38 mmHg (35-45); ABG PH 7.442 (7.35-7.450); PO2, ARTERIAL BG 114.5 mmHg (75.0-83.0); SOURCE, BLOOD GAS ARTERIAL; TEMPERATURE, FAHRENHEIT, BG 99.6 FAHREN (96.0-98.6)
[2021-09-20] MEDS: DEXTROSE 5%-WATER 1,000 ML IV SCH (13:08)
[2021-09-20] MEDS: POTASSIUM CHL 10 MEQ/WATER 50 ML IV SCH ×2 (13:08→15:03)
[2021-09-20 13:10] LABS: ABG TOTAL HEMOGLOBIN 7.8 G/dL (12.0-18.0); O2 DEVICE,BLOOD GAS VENTILATOR (ROOM AIR); SITE, BLOOD GAS ARTERIAL LINE
[2021-09-20 13:11] LABS: VENT MODE, BG Press. Support Vent. (ROOM AIR)
[2021-09-20 13:12] LABS: PEEP,BG 5 cm H2O; PRESSURE SUPPORT, BG 8 cm H2O; SPONTANEOUS VT, BG 548 ml
[2021-09-20 14:50] LABS: GLUCOSE,POINT OF CARE 105 MG/DL (70-110)
[2021-09-20 16:00] VITALS: BP 159/86
[2021-09-20 18:46] LABS: GLUCOSE,POINT OF CARE 118 MG/DL (70-110)
[2021-09-20 20:00] VITALS: BP 123/64
[2021-09-21] VITALS: BP 157/72
[2021-09-21 01:46] LABS: GLUCOSE,POINT OF CARE 129 MG/DL (70-110)
[2021-09-21] MEDS: PIPERACILLIN SODIUM/TAZOBACTAM 2.25 GM in DEXTROSE 5%-WATER 50 ML IV SCH ×2 (02:11→08:28)
[2021-09-21] MEDS: LORazepam 2 MG/ML VIAL IVP PRN ×3 (02:15→23:34)
[2021-09-21] MEDS: DEXMEDETOMIDINE HCL 400 MCG in SODIUM CHLORIDE 0.9% 96 ML IV PRN ×3 (03:56→19:31)
[2021-09-21 04:00] VITALS: BP 132/59
[2021-09-21] MEDS: FentaNYL CIT 1000MCG/0.9% NACL 100 ML IV PRN ×2 (04:09→11:19)
[2021-09-21 05:01] LABS: GLUCOSE,POINT OF CARE 113 MG/DL (70-110)
[2021-09-21 05:08] LABS: BASOPHILS % (AUTO) 0.3 % (0.0-2.0); EOSINOPHILS % (AUTO) 1.7 % (1.0-6.0); HEMATOCRIT 24.4 % (41-53); HEMOGLOBIN 8.3 g/dL (13.5-17.5); LYMPHOCYTES # (AUTO) 0.7 K/uL (1.0-4.8); LYMPHOCYTES % (AUTO) 7.2 % (22.0-44.0); MEAN CORPUSCULAR HEMOGLOBIN 29.9 pg (26.0-34.0); MEAN CORPUSCULAR VOLUME 88 fL (80-100); MONOCYTES # (AUTO) 0.9 K/uL (0.1-1.0); MONOCYTES % (AUTO) 9.6 % (2.0-9.0); NEUTROPHILS # (AUTO) 7.8 K/uL (1.8-7.7); NEUTROPHILS % (AUTO) 81.2 % (40.0-70.0); PLATELET COUNT (AUTO) 144 K/uL (150-450); RED BLOOD CELL COUNT(AUTO) 2.77 MIL/uL (4.50-5.90); RED CELL DISTRIBUTION WIDTH 14.1 % (11.5-14.5)
[2021-09-21 05:22] LABS: ANION GAP 10 mmol/L (8-16); CALCIUM, TOTAL 8.6 mg/dL (8.8-10.5); CARBON DIOXIDE 26 mmol/L (22-29); CHLORIDE 111 mmol/L (98-107); CREATININE 1.37 mg/dL (0.60-1.30); GLUCOSE,RANDOM 146 mg/dL (70-110); PHOSPHORUS 3.8 mg/dL (2.5-4.9); POTASSIUM 3.5 mmol/L (3.5-5.1); SODIUM SERUM 147 mmol/L (136-145); UREA NITROGEN, BLOOD 19 mg/dL (7-18)
[2021-09-21 05:24] LABS: GLOMERULAR FILTR. RATE CALC > 60 mL/min (>60)
[2021-09-21 08:00] VITALS: BP 148/72
[2021-09-21] MEDS: FAMOTIDINE 20 MG TABLET NG SCH (08:29)
[2021-09-21] MEDS: MetroNIDAZOLE 500 MG TABLET PO SCH ×2 (08:29→16:19)
[2021-09-21] MEDS: HEPARIN SODIUM,PORCINE 5,000 UNITS/ML VIAL SQ SCH ×2 (08:29→20:34)
[2021-09-21] MEDS: ETHYL ALCOHOL 62% ANTISEPTIC NASAL INHALANT 0.6 ML AMPUL NASAL SCH ×2 (08:35→20:33)
[2021-09-21] MEDS: DOCUSATE SODIUM 100 MG CAPSULE PO SCH ×2 (09:00→20:34)
[2021-09-21] MEDS: DEXTROSE 5%-WATER 1,000 ML IV SCH (11:19)
[2021-09-21 12:00] VITALS: BP 147/70
[2021-09-21] MEDS: PIPERACILLIN/TAZO 3.375 GM/D5W 50 ML IV SCH ×2 (14:41→20:17)
[2021-09-21 16:22] LABS: ABG A-A DIFF O2 111.4 mmHg (10-20.0); ABG BASE EXCESS -0.1 mmol/L (-2.0-3.0); ABG CARBOXYHEMOGLOBIN 0.5 % (0.0-1.5); ABG HCO3 24.5 mmol/L (22.0-26.0); ABG METHEMOGLOBIN 0.3 % (0.0-1.5); ABG OXYGEN CONTENT 11.8 mL/dL (15.0-23.0); ABG OXYGEN SATURATION 97.1 % (95.0-98.0); ABG OXYHEMOGLOBIN 96.3 % (94.0-100.0); ABG PCO2 39 mmHg (35-45); ABG PH 7.419 (7.35-7.450); ABG TOTAL HEMOGLOBIN 8.6 G/dL (12.0-18.0); CPAP, BG 0 cm H2O; O2 DEVICE,BLOOD GAS VENTILATOR (ROOM AIR); PO2, ARTERIAL BG 93.4 mmHg (75.0-83.0); PRESSURE SUPPORT, BG 8 cm H2O; SITE, BLOOD GAS RT RADIAL; SOURCE, BLOOD GAS ARTERIAL; SPONTANEOUS VT, BG 420 ml; TEMPERATURE, FAHRENHEIT, BG 98.6 FAHREN (96.0-98.6); VENT MODE, BG CPAP (ROOM AIR)
[2021-09-21 20:00] VITALS: BP 179/99
[2021-09-22] VITALS: BP 149/69
[2021-09-22 00:12] LABS: GLUCOSE,POINT OF CARE 92 MG/DL (70-110)
[2021-09-22] MEDS: PIPERACILLIN/TAZO 3.375 GM/D5W 50 ML IV SCH ×4 (01:56→22:03)
[2021-09-22] MEDS: LORazepam 2 MG/ML VIAL IVP PRN (02:11)
[2021-09-22 02:36] LABS: GLUCOSE,POINT OF CARE 103 MG/DL (70-110)
[2021-09-22 02:36] LABS: GLUCOSE,POINT OF CARE 109 MG/DL (70-110)
[2021-09-22 04:00] VITALS: BP 155/75
[2021-09-22 04:49] LABS: BASOPHILS % (AUTO) 0.4 % (0.0-2.0); EOSINOPHILS % (AUTO) 2.6 % (1.0-6.0); HEMATOCRIT 27.7 % (41-53); HEMOGLOBIN 9.2 g/dL (13.5-17.5); LYMPHOCYTES # (AUTO) 0.7 K/uL (1.0-4.8); LYMPHOCYTES % (AUTO) 6.3 % (22.0-44.0); MEAN CORPUSCULAR HEMOGLOBIN 29.1 pg (26.0-34.0); MEAN CORPUSCULAR HGB CONC 33.3 G/dL (31.0-37.0); MEAN CORPUSCULAR VOLUME 87 fL (80-100); MONOCYTES # (AUTO) 0.9 K/uL (0.1-1.0); MONOCYTES % (AUTO) 7.6 % (2.0-9.0); NEUTROPHILS # (AUTO) 9.7 K/uL (1.8-7.7); NEUTROPHILS % (AUTO) 83.1 % (40.0-70.0); PLATELET COUNT (AUTO) 92 K/uL (150-450); RED BLOOD CELL COUNT(AUTO) 3.17 MIL/uL (4.50-5.90)
[2021-09-22] MEDS: DEXTROSE 5%-WATER 1,000 ML IV SCH (05:16)
[2021-09-22 08:00] VITALS: BP 184/90
[2021-09-22 08:52] LABS: ANION GAP 10 mmol/L (8-16); CALCIUM, TOTAL 7.9 mg/dL (8.8-10.5); CARBON DIOXIDE 25 mmol/L (22-29); CHLORIDE 104 mmol/L (98-107); CREATININE 1.28 mg/dL (0.60-1.30); GLUCOSE,RANDOM 279 mg/dL (70-110); POTASSIUM 3.3 mmol/L (3.5-5.1); SODIUM SERUM 139 mmol/L (136-145); UREA NITROGEN, BLOOD 17 mg/dL (7-18)
[2021-09-22 08:53] LABS: GLOMERULAR FILTR. RATE CALC > 60 mL/min (>60); PHOSPHORUS 3.1 mg/dL (2.5-4.9)
[2021-09-22] MEDS: HEPARIN SODIUM,PORCINE 5,000 UNITS/ML VIAL SQ SCH ×2 (09:20→22:04)
[2021-09-22] MEDS: DOCUSATE SODIUM 100 MG CAPSULE PO SCH ×3 (09:21→22:03)
[2021-09-22] MEDS: ETHYL ALCOHOL 62% ANTISEPTIC NASAL INHALANT 0.6 ML AMPUL NASAL SCH ×2 (09:21→22:03)
[2021-09-22] MEDS: MetroNIDAZOLE 500 MG TABLET PO SCH ×3 (09:22→16:20)
[2021-09-22] MEDS: FAMOTIDINE 20 MG TABLET NG SCH (09:26)
[2021-09-22 12:00] VITALS: BP 109/73
[2021-09-22] MEDS: DEXMEDETOMIDINE HCL 400 MCG in SODIUM CHLORIDE 0.9% 96 ML IV PRN ×2 (12:01→18:21)
[2021-09-22 16:00] VITALS: BP 119/70
[2021-09-22] MEDS: POTASSIUM CHL 10 MEQ/WATER 50 ML IV SCH ×3 (16:19→18:23)
[2021-09-22 20:00] VITALS: BP 116/64
[2021-09-23] VITALS: BP 119/75
[2021-09-23 01:21] LABS: GLUCOSE,POINT OF CARE 98 MG/DL (70-110)
[2021-09-23 01:21] LABS: GLUCOSE,POINT OF CARE 94 MG/DL (70-110)
[2021-09-23 01:21] LABS: GLUCOSE,POINT OF CARE 82 MG/DL (70-110)
[2021-09-23] MEDS: DEXTROSE 5%-WATER 1,000 ML IV SCH ×2 (01:39→21:27)
[2021-09-23 02:06] LABS: GLUCOSE,POINT OF CARE 87 MG/DL (70-110)
[2021-09-23] MEDS: PIPERACILLIN/TAZO 3.375 GM/D5W 50 ML IV SCH ×4 (02:24→21:27)
[2021-09-23] MEDS: DEXMEDETOMIDINE HCL 400 MCG in SODIUM CHLORIDE 0.9% 96 ML IV PRN (03:39)
[2021-09-23 04:00] VITALS: BP 140/55
[2021-09-23 04:47] LABS: BASOPHILS % (AUTO) 1.1 % (0.0-2.0); EOSINOPHILS % (AUTO) 3.1 % (1.0-6.0); HEMATOCRIT 24.6 % (41-53); HEMOGLOBIN 8.5 g/dL (13.5-17.5); LYMPHOCYTES # (AUTO) 0.9 K/uL (1.0-4.8); LYMPHOCYTES % (AUTO) 9.4 % (22.0-44.0); MEAN CORPUSCULAR HEMOGLOBIN 29.6 pg (26.0-34.0); MEAN CORPUSCULAR HGB CONC 34.5 G/dL (31.0-37.0); MEAN CORPUSCULAR VOLUME 86 fL (80-100); MONOCYTES # (AUTO) 0.7 K/uL (0.1-1.0); MONOCYTES % (AUTO) 8.1 % (2.0-9.0); NEUTROPHILS # (AUTO) 7.2 K/uL (1.8-7.7); NEUTROPHILS % (AUTO) 78.3 % (40.0-70.0); PLATELET COUNT (AUTO) 82 K/uL (150-450); RED BLOOD CELL COUNT(AUTO) 2.86 MIL/uL (4.50-5.90); RED CELL DISTRIBUTION WIDTH 13.8 % (11.5-14.5)
[2021-09-23 07:12] LABS: GLUCOSE,POINT OF CARE 97 MG/DL (70-110)
[2021-09-23 08:00] VITALS: BP 113/51
[2021-09-23 08:55] LABS: ANION GAP 9 mmol/L (8-16); CALCIUM, TOTAL 8.3 mg/dL (8.8-10.5); CARBON DIOXIDE 26 mmol/L (22-29); CHLORIDE 110 mmol/L (98-107); CREATININE 1.38 mg/dL (0.60-1.30); GLUCOSE,RANDOM 103 mg/dL (70-110); PHOSPHORUS 2.8 mg/dL (2.5-4.9); POTASSIUM 3.6 mmol/L (3.5-5.1); SODIUM SERUM 145 mmol/L (136-145); UREA NITROGEN, BLOOD 19 mg/dL (7-18)
[2021-09-23 08:56] LABS: GLOMERULAR FILTR. RATE CALC > 60 mL/min (>60)
[2021-09-23] MEDS: MetroNIDAZOLE 500 MG TABLET PO SCH ×3 (09:38→16:25)
[2021-09-23] MEDS: HEPARIN SODIUM,PORCINE 5,000 UNITS/ML VIAL SQ SCH ×2 (09:38→21:28)
[2021-09-23] MEDS: FAMOTIDINE 20 MG TABLET NG SCH (09:38)
[2021-09-23] MEDS: ETHYL ALCOHOL 62% ANTISEPTIC NASAL INHALANT 0.6 ML AMPUL NASAL SCH ×2 (09:39→21:28)
[2021-09-23] MEDS: LORazepam 2 MG/ML VIAL IVP PRN ×3 (10:23→21:27)
[2021-09-23 12:00] VITALS: BP 100/45
[2021-09-23 15:41] LABS: GLUCOSE,POINT OF CARE 104 MG/DL (70-110)
[2021-09-23 16:00] VITALS: BP 90/56
[2021-09-23 20:00] VITALS: BP 87/58
[2021-09-24] VITALS: BP 114/60
[2021-09-24] MEDS: MetroNIDAZOLE 500 MG TABLET PO SCH ×4 (00:05→23:22)
[2021-09-24] MEDS: LORazepam 2 MG/ML VIAL IVP PRN ×5 (00:06→23:22)
[2021-09-24] MEDS: PIPERACILLIN/TAZO 3.375 GM/D5W 50 ML IV SCH ×4 (01:02→20:50)
[2021-09-24 04:00] VITALS: BP 107/70
[2021-09-24 05:16] LABS: BASOPHILS % (AUTO) 0.7 % (0.0-2.0); EOSINOPHILS % (AUTO) 3.3 % (1.0-6.0); HEMATOCRIT 23.3 % (41-53); HEMOGLOBIN 8.1 g/dL (13.5-17.5); LYMPHOCYTES # (AUTO) 0.9 K/uL (1.0-4.8); LYMPHOCYTES % (AUTO) 11.7 % (22.0-44.0); MEAN CORPUSCULAR HEMOGLOBIN 30.1 pg (26.0-34.0); MEAN CORPUSCULAR HGB CONC 34.8 G/dL (31.0-37.0); MEAN CORPUSCULAR VOLUME 87 fL (80-100); MONOCYTES # (AUTO) 0.8 K/uL (0.1-1.0); MONOCYTES % (AUTO) 10.4 % (2.0-9.0); NEUTROPHILS # (AUTO) 5.9 K/uL (1.8-7.7); NEUTROPHILS % (AUTO) 73.9 % (40.0-70.0); PLATELET COUNT (AUTO) 88 K/uL (150-450); RED BLOOD CELL COUNT(AUTO) 2.69 MIL/uL (4.50-5.90); RED CELL DISTRIBUTION WIDTH 13.6 % (11.5-14.5)
[2021-09-24 08:00] VITALS: BP 98/47
[2021-09-24] MEDS: FAMOTIDINE 20 MG TABLET NG SCH (08:43)
[2021-09-24] MEDS: DOCUSATE SODIUM 100 MG CAPSULE PO SCH ×2 (08:43→21:42)
[2021-09-24] MEDS: HEPARIN SODIUM,PORCINE 5,000 UNITS/ML VIAL SQ SCH ×2 (08:43→21:42)
[2021-09-24] MEDS: ACETAMINOPHEN 325 MG TABLET PO PRN (08:43)
[2021-09-24] MEDS: ETHYL ALCOHOL 62% ANTISEPTIC NASAL INHALANT 0.6 ML AMPUL NASAL SCH (08:44)
[2021-09-24 09:01] LABS: GLUCOSE,POINT OF CARE 69 MG/DL (70-110)
[2021-09-24 09:01] LABS: GLUCOSE,POINT OF CARE 68 MG/DL (70-110)
[2021-09-24 10:16] LABS: GLUCOSE,POINT OF CARE 80 MG/DL (70-110)
[2021-09-24 10:16] LABS: GLUCOSE,POINT OF CARE 88 MG/DL (70-110)
[2021-09-24 12:00] VITALS: BP 138/60
[2021-09-24 13:31] LABS: GLUCOSE,POINT OF CARE 75 MG/DL (70-110)
[2021-09-24] MEDS: QUEtiapine FUMARATE 25 MG TABLET PO SCH ×2 (13:32→21:42)
[2021-09-24] MEDS ORDERED: FLUTICASONE PROPIONATE 50 MCG/SPRAY 16 GM NASAL SPRAY NASAL SCH (15:30)
[2021-09-24 16:00] VITALS: BP 142/51
[2021-09-24 20:00] VITALS: BP 138/46
[2021-09-24 22:11] LABS: GLUCOSE,POINT OF CARE 135 MG/DL (70-110)
[2021-09-25] VITALS: BP 117/56
[2021-09-25] MEDS: PIPERACILLIN/TAZO 3.375 GM/D5W 50 ML IV SCH ×3 (02:58→14:10)
[2021-09-25] MEDS: LORazepam 2 MG/ML VIAL IVP PRN ×3 (03:04→14:10)
[2021-09-25 04:00] VITALS: BP 127/53
[2021-09-25 04:51] LABS: BASOPHILS % (AUTO) 0.7 % (0.0-2.0); EOSINOPHILS % (AUTO) 3.2 % (1.0-6.0); HEMATOCRIT 26.5 % (41-53); HEMOGLOBIN 9.2 g/dL (13.5-17.5); LYMPHOCYTES # (AUTO) 0.9 K/uL (1.0-4.8); LYMPHOCYTES % (AUTO) 10.2 % (22.0-44.0); MEAN CORPUSCULAR HEMOGLOBIN 29.8 pg (26.0-34.0); MEAN CORPUSCULAR HGB CONC 34.8 G/dL (31.0-37.0); MEAN CORPUSCULAR VOLUME 86 fL (80-100); MONOCYTES # (AUTO) 0.9 K/uL (0.1-1.0); MONOCYTES % (AUTO) 10.2 % (2.0-9.0); NEUTROPHILS % (AUTO) 75.7 % (40.0-70.0); PLATELET COUNT (AUTO) 124 K/uL (150-450)
[2021-09-25 08:00] VITALS: BP 133/64
[2021-09-25] MEDS: MetroNIDAZOLE 500 MG TABLET PO SCH (08:27)
[2021-09-25] MEDS: ACETAMINOPHEN 325 MG TABLET PO PRN (08:27)
[2021-09-25] MEDS: HEPARIN SODIUM,PORCINE 5,000 UNITS/ML VIAL SQ SCH (08:27)
[2021-09-25] MEDS: FAMOTIDINE 20 MG TABLET NG SCH (08:27)
[2021-09-25] MEDS: DOCUSATE SODIUM 100 MG CAPSULE PO SCH (08:28)
[2021-09-25] MEDS: QUEtiapine FUMARATE 25 MG TABLET PO SCH (08:28)
[2021-09-25] MEDS ORDERED: QUEtiapine FUMARATE 25 MG TABLET PO SCH ×2 (08:45→21:00)
[2021-09-25 12:00] VITALS: BP 99/59
[2021-09-25 12:42] LABS: GLUCOSE,POINT OF CARE 86 MG/DL (70-110)
== END 2021-09-25 15:20 | DRG 870 ==
LOC: EMS 11:53 → 5S 15:15 → UNDOADMIN 15:15 → 5S 09-13 11:47 → ICUN 09-13 15:23 → ICU 09-14 20:00
PROVIDERS: ADMIT Internal Medicine; ATTEND Internal Medicine
PROC: 0BH17EZ Insertion of Endotracheal Airway into Trachea, Via Natural or Artificial Opening (ICD-10-PCS; 2021-09-13)
PROC: 5A1955Z Respiratory Ventilation, Greater than 96 Consecutive Hours (ICD-10-PCS; 2021-09-13)
PROC: 5A12012 Performance of Cardiac Output, Single, Manual (ICD-10-PCS; 2021-09-13)
PROC: 04HY32Z Insertion of Monitoring Device into Lower Artery, Percutaneous Approach (ICD-10-PCS; 2021-09-14)
PROC: 06HY33Z Insertion of Infusion Device into Lower Vein, Percutaneous Approach (ICD-10-PCS; 2021-09-14)
PROC: B44FZZZ Ultrasonography of Right Lower Extremity Arteries (ICD-10-PCS; 2021-09-14)
PROC: 0W9B30Z Drainage of Left Pleural Cavity with Drainage Device, Percutaneous Approach (ICD-10-PCS; 2021-09-14)
PROC: 0W9930Z Drainage of Right Pleural Cavity with Drainage Device, Percutaneous Approach (ICD-10-PCS; 2021-09-14)
PROC: 02HV33Z Insertion of Infusion Device into Superior Vena Cava, Percutaneous Approach (ICD-10-PCS; principal; 2021-09-20)
DX: A41.9 Sepsis, unspecified organism (principal); N17.0 Acute kidney failure with tubular necrosis; J69.0 Pneumonitis due to inhalation of food and vomit; R65.21 Severe sepsis with septic shock; K85.90 Acute pancreatitis without necrosis or infection, unspecified; G93.41 Metabolic encephalopathy; I50.21 Acute systolic (congestive) heart failure; G92.8 Other toxic encephalopathy; E43 Unspecified severe protein-calorie malnutrition; J96.01 Acute respiratory failure with hypoxia; I46.9 Cardiac arrest, cause unspecified; I13.0 Hypertensive heart and chronic kidney disease with heart failure and stage 1 through stage 4 chronic kidney disease, or unspecified chronic kidney disease; B19.10 Unspecified viral hepatitis B without hepatic coma; J93.82 Other air leak; J93.9 Pneumothorax, unspecified; M62.82 Rhabdomyolysis; A04.72 Enterocolitis due to Clostridium difficile, not specified as recurrent; E87.0 Hyperosmolality and hypernatremia; I82.4Z2 Acute embolism and thrombosis of unspecified deep veins of left distal lower extremity; N13.30 Unspecified hydronephrosis; Z99.11 Dependence on respirator [ventilator] status; B19.20 Unspecified viral hepatitis C without hepatic coma; E83.42 Hypomagnesemia; E87.5 Hyperkalemia; F20.9 Schizophrenia, unspecified; N18.9 Chronic kidney disease, unspecified; E87.6 Hypokalemia; R62.7 Adult failure to thrive; F99 Mental disorder, not otherwise specified; D63.8 Anemia in other chronic diseases classified elsewhere; Z68.24 Body mass index [BMI] 24.0-24.9, adult
CPT/HCPCS: 36245; 36556; 36569; 36600; 70450; 71045; 76770; 76937; 80048; 80053; 81001; 82271; 82550; 82728; 82805; 82962; 83540; 83550; 83605; 83690; 83735; 83880; 84100; 84132; 84439; 84443; 84484; 85007; 85025; 85027; 85610; 85730; 86038; 86140; 86160; 86803; 87040; 87070; 87081; 87324; 87340; 87449; 90935; 90947; 92610; 93005; 93306; 93970; 94002; 94003; 94640; 99291; 99292; G0378; G0480; J0461; J0610; J1265; J1610; J1642; J1644; J2060; J2250; J2370; J2405; J2543; J2704; J3475; J3480; J3490; J7030; J7040; J7050; J7060; J7120; Q9967; 36415-L1; 36415-TC